=== PATIENT | female | born 1980 | race Two or more races ===

== ENCOUNTER 2017-01-05 09:41 | Emergency (ER) | payer OTHER ==
[~2017-01-05] VITALS: Wt 43.6 kg
[~2017-01-05 09:41] MED LIST: ACET325T33 PO
[2017-01-05] MEDS ORDERED: CIPR500T4 PO (10:28)
--- NOTE | 2017-01-05 13:54 | ERD ---
ER Documentation Chief Complaint Date/Time DATE: 01/05/17 TIME: 13:52 Chief Complaint abd pain and diarrhea for 1 wk. no recent travel. no vomiting HPI Patient is a 36-year-old female with no medical problems who presents with diarrhea. She said that she started on Sunday with diarrhea after eating Wes fruit. She has not called her primary doctor as of yet. She thought that maybe she had food poisoning. She has had no blood in the diarrhea but says that it is been mucousy. The patient has no vomiting and no fevers. The patient had abdominal pain diffusely. There was no recent travel. She tried loperamide for the diarrhea. Upon review of old medical records this is the patient's fourth visit to the ER since 2014. ROS All systems reviewed and are negative except as per history of present illness. Medications Home Meds Active Scripts Ciprofloxacin Hcl* (Ciprofloxacin Hcl*) 500 Mg Tablet, 500 MG PO BID for 3 Days , TAB Prov:XANDER LYNNE MD 01/05/17 Acetaminophen* (Tylenol*) 325 Mg Tablet, 2 TAB PO Q6 Y for PAIN AND OR ELEVATED TEMP, #20 TAB Prov:RUBEN HICKMAN PA-C 06/02/16 Allergies Allergies: Coded Allergies: No Known Allergy (Unverified , 10/09/15) PMhx/Soc History of Surgery: Yes (CS X1) Anesthesia Reaction: No Hx Neurological Disorder: No Hx Respiratory Disorders: No Hx Cardiac Disorders: No Hx Psychiatric Problems: No Hx Miscellaneous Medical Probl: Yes (HYPOTHYROIDISM) Hx Alcohol Use: No Hx Substance Use: No Hx Tobacco Use: No FmHx Family History: No diabetes Physical Exam Vitals Vital Signs Date Time Temp Pulse Resp B/P Pulse Ox O2 Delivery O2 Flow Rate FiO2 01/05/17 09:46 98.4 87 21 120/71 99 Physical Exam Const: No acute distress Head: Atraumatic Eyes: Normal Conjunctiva ENT: Normal External Ears, Nose and Mouth. Neck: Full range of motion..~ No meningismus. Resp: Clear to auscultation bilaterally Cardio: Regular rate and rhythm, no murmurs Abd: Soft, non tender, non distended. Normal bowel sounds Skin: No petechiae or rashes Back: No midline or flank tenderness Ext: No cyanosis, or edema Neur: Awake and alert Psych: Normal Mood and Affect Procedures/MDM Patient is a 36-year-old female presents with abdominal pain and diarrhea. On abdominal exam she has no pain and I am able to push deeply in all 4 quadrants without pain. She has no fevers number department is well-appearing and well- hydrated. She has tried loperamide. Therefore I will try a 3 day course of Cipro to see if this is a bacterial diarrhea. The patient can follow-up with a primary doctor within 24-48 hours for reevaluation. At this point I doubt appendicitis, cholecystitis, pink otitis, or bowel obstruction. I do not believe she requires further workup or admission to the hospital at this time. Departure Diagnosis: Primary Impression: Abdominal pain Abdominal location: generalized Qualified Code: R10.84 - Generalized abdominal pain Additional Impression: Diarrhea Diarrhea type: presumed infectious Qualified Code: A09 - Diarrhea of presumed infectious origin Condition: Fair Patient Instructions: Abdominal Pain, Treating Diarrhea Additional Instructions: Call your primary care doctor TOMORROW for an appointment during the next 1-2 days.See the doctor sooner or return here if your condition worsens before your appointment time. XANDER LYNNE MD Jan 05, 2017 13:54
== END 2017-01-05 10:35 | disposition home or self-care (01) ==
LOC: FTE 09:41
DX: R10.84 Generalized abdominal pain (principal); E03.9 Hypothyroidism, unspecified; A09 Infectious gastroenteritis and colitis, unspecified
CPT/HCPCS: 99283

== ENCOUNTER 2017-09-19 10:59 | Inpatient (IN) | payer OTHER ==
[~2017-09-19] VITALS: Ht 139.7 cm; Wt 54.1 kg
[~2017-09-19 10:59] MED LIST changes: +CIPR500T4 PO
[2017-09-19 11:14] VITALS: Ht 139.7 cm; Wt 54.1 kg
[2017-09-19] MEDS ORDERED: METHYLERGONOVINE 0.2 MG INJ IM PRN ×2 (11:30→18:00)
[2017-09-19] MEDS ORDERED: OXYTOCIN 30 UNITS/LR 500 ML IV SCH (11:30)
[2017-09-19] MEDS ORDERED: CARBOPROST 250 MCG INJ IM PRN ×2 (11:30→18:00)
[2017-09-19] MEDS ORDERED: OXYTOCIN 30 UNITS/LR 500 ML IV PRN ×2 (11:30→18:00)
[2017-09-19] MEDS ORDERED: MISOPROSTOL 200 MCG TAB PR PRN ×2 (11:30→18:00)
[2017-09-19] MEDS ORDERED: CEFAZOLIN 2 GM/50 ML (PMX) 50 ML IV SCH (11:30)
[2017-09-19 12:24] LABS: ABNORMAL IP MESSAGE 1; BASOPHILS % 0.2 % (0.0-2.0); EOSINOPHILS # 0.1 10^3/ul (0.0-0.5); EOSINOPHILS % 0.9 % (0.0-7.0); HEMATOCRIT 32.9 % (37.0-47.0); HEMOGLOBIN 11.1 g/dl (12.0-16.0); LYMPHOCYTES % 19.7 % (15.0-51.0); MEAN CORPUSCULAR HEMOGLOBIN 25.1 pg (29.0-33.0); MEAN CORPUSCULAR HGB CONC 33.7 g/dl (32.0-37.0); MEAN CORPUSCULAR VOLUME 74.4 fl (82.0-101.0); MEAN PLATELET VOLUME 13.1 fl (7.4-10.4); MONOCYTE # 0.7 10^3/ul (0.3-0.9); MONOCYTES % 6.9 % (0.0-11.0); NEUTROPHIL # 7.4 10^3/ul (1.6-7.5); NEUTROPHILS % 71.3 % (39.0-77.0); PLATELET COUNT 228 10^3/UL (140-415); RED BLOOD COUNT 4.42 10^6/ul (4.20-5.40); RED CELL DISTRIBUTION WIDTH 13.9 % (11.5-14.5); WHITE BLOOD COUNT 10.3 10^3/ul (4.8-10.8)
[2017-09-19 12:52] LABS: INR 0.93; PROTIME 12.5 Sec (12.2-14.2)
[2017-09-19 12:53] LABS: PARTIAL THROMBOPLASTIN TIME 27.1 Sec (25.0-35.0)
[2017-09-19] MEDS: LACTATED RINGER'S 1,000 ML IV SCH ×3 (13:35→19:26)
[2017-09-19] MEDS ORDERED: FENTAnyl 50 MCG/ML VIAL ONE (14:18)
[2017-09-19] MEDS ORDERED: morphine SULFATE/PF (10 MG/10 ML) INJ ONE (14:18)
[2017-09-19] MEDS ORDERED: PHENYLephrine (100 MCG/ML) 5ML SYG ONE ×2 (14:18→15:06)
[2017-09-19] MEDS ORDERED: DEXAMETHASONE 4 MG/ML 1 ML INJ ONE (14:35)
[2017-09-19] MEDS ORDERED: ONDANSETRON 4 MG INJ ONE (14:35)
[2017-09-19] MEDS ORDERED: OXYTOCIN 30 UNITS/LR 500 ML IV ONE (14:44)
[2017-09-19] MEDS ORDERED: EPHEDrine SULFATE 50 MG/5 ML SYG ONE (15:04)
--- NOTE | 2017-09-19 15:25 | HP ---
Date/Time of Note Date/Time of Note DATE: 09/19/17 TIME: 15:22 OB - History Hx of Present Free Text/Dictation Admitted for repeat at 37+ weeks per perinatology because of poor growth decrease amniotic fluid Last Menstrual Period: Dec 29, 2007 Estimated Due Date: Oct 04, 2017 : 3 Para: 1 Spontaneous : 1 Care: Good Care Ultrasounds: Normal mid trimester US Obstetrical Complications: Growth Restriction Medical Complications: Other (Previous section) Past Family/Social History * Past Medical, Surgical, Family and Obstetric Histories reviewed from chart. Blood Type: O+ Rubella: immune RPR/VDRL: Negative GBS Status: Negative HBsAG: Negative OB Admission Exam Physical Exam HEENT: WNL Heart: Rhythm Normal Lungs: Clear, Equal Abdomen: WNL Extremities: Normal Reflexes: Normal Cervical Dilatation: None Effacement: 0% Station: -3 Membranes: Intact Heart Rate: 140's Accelerations: Accelerations Present Decelerations: No Decelerations Varibility: Marked Contractions on Admission: None Last 72 hours Lab Results CBC & BMP 09/19/17 11:30 OB Assessment/Plan Reason for admission: section Other Assessment: 37+ weeks gestation growth restriction Reason amniotic fluid Previous section 1 Other plan: Repeat section PONCE LOVE MD Sep 19, 2017 15:25
--- NOTE | 2017-09-19 15:29 | OPPN ---
Date/Time of Note Date/Time of Note DATE: 09/19/17 TIME: 15:25 Operative Report Planned Procedure Free Text/Dictation Under satisfactory anaesthesia a Pfannenstiel incision was made two fingerbreadth above and parallel to the symphysis of pubis around the previous scar and previous scar was removed Incision was extended laterally to the border of the Recti muscles on either sides. Incision was carried down with sharp and blunt dissection until fascia was reached. Anterior Recti muscle fascia was incised in mid portion and incision extended laterally to the border of skin incision. Fascia was mobilized from muscle superiorly and Recti muscles were from midline using sharp and blunt dissection. Peritoneum was visualized; Avoiding bowel and bladder it was incised . Incision was extended superiorly and inferiorly. Bladder blade was placed. Posterior peritoneum covering the lower segment of the uterus and lower segment of the uterus were incised.Low transverse uterine incision was made on lower segment of the uterus. Incision extended laterally to the border of Round Lig. on either sides and baby was delivered from OT. position . Amniotic fluid appeared clear. Cord blood was obtained and cord had 3 vessels . Placenta was delivered spontaneously and appeared intact and complete. Intrauterine cavity was rubbed with a laparotomy sponge. Uterine incision was closed in 2 layers using running stitches of No1 Monocryl. Hemostasis appeared secure. Ovaries and Fallopian tubes were within normal limits. Announcing needle, lap sponge and instrument count to be correct abdomen was closed in layers as follows: Peritoneum and Recti muscles with running stitches of 20 Vicryl. Fascia with running stitch of No 1 PDS. Subcutaneous tissue with running stitches of 20 Chromic and skin was closed using del. Patient tolerated the procedure well and was transferred to [facility] in good condition. Procedure date Sep 19, 2017 Procedure(s) Asher section Performed by see signature line Sales Order Processor Dr. Maher Anesthesiologist: GERRI BUCKNER Pre-procedure diagnosis 37+ weeks gestation Previous section 1 Decreased amniotic fluid Poor growth Anesthesia Type: spinal Post-Procedure Post-procedure diagnosis Status post repeat Findings Live Baby in OT position Scant amniotic fluid Estimated Blood Loss: 500 - 600 mls Specimen(s) none Grafts/Implant(s) none Complication(s) none PONCE LOVE MD Sep 19, 2017 15:29
[2017-09-19] MEDS ORDERED: DIPHENHYDRAMINE 50 MG INJ IV PRN (16:00)
[2017-09-19] MEDS ORDERED: ZOLPIDEM 5 MG TAB PO PRN (16:00)
[2017-09-19] MEDS ORDERED: NALOXONE (0.4 MG/ML) INJ IV PRN (16:00)
[2017-09-19] MEDS ORDERED: ONDANSETRON 4 MG INJ IV PRN (16:00)
[2017-09-19] MEDS ORDERED: HYDROmorphONE 0.5 MG/0.5 ML SYG IV PRN ×2 (16:00)
[2017-09-19] MEDS ORDERED: LANOLIN 7 GM TUBE TOP PRN (18:00)
[2017-09-19] MEDS ORDERED: NA PHOSPHATE/BIPHOS 133 ML ENEMA PR PRN (18:00)
[2017-09-19 18:25] VITALS: BP 123/84; PULSE 92; RESP 18
[2017-09-19] MEDS: CLINDAMYCIN 300 MG CAP PO SCH (18:49)
[2017-09-19] MEDS: KETOROLAC 30 MG INJ IV PRN (18:50)
[2017-09-19 20:00] VITALS: BP 131/70; PULSE 88; RESP 20
[2017-09-19] MEDS: CEFAZOLIN 2 GM/50 ML (PMX) 50 ML IVPB SCH (21:46)
[2017-09-19] MEDS: SENNA/DOCUSATE NA (8.6MG/50MG) TAB PO SCH (21:47)
[2017-09-20] MEDS: CLINDAMYCIN 300 MG CAP PO SCH ×5 (00:12→23:55)
[2017-09-20 00:17] VITALS: BP 106/61; PULSE 100; RESP 20
[2017-09-20] MEDS: LACTATED RINGER'S 1,000 ML IV SCH ×3 (03:47→17:54)
[2017-09-20 04:00] VITALS: BP 99/59; PULSE 87; RESP 20
[2017-09-20] MEDS: KETOROLAC 30 MG INJ IV PRN ×2 (04:21→12:07)
[2017-09-20] MEDS: CEFAZOLIN 2 GM/50 ML (PMX) 50 ML IVPB SCH ×2 (06:00→14:26)
[2017-09-20 07:45] VITALS: BP 99/57; PULSE 90; RESP 18
[2017-09-20 09:46] LABS: BASOPHILS % 0.1 % (0.0-2.0); EOSINOPHILS # 0.1 10^3/ul (0.0-0.5); EOSINOPHILS % 0.5 % (0.0-7.0); HEMATOCRIT 28.8 % (37.0-47.0); HEMOGLOBIN 9.6 g/dl (12.0-16.0); LYMPHOCYTES # 2.9 10^3/ul (0.8-2.9); LYMPHOCYTES % 18.9 % (15.0-51.0); MEAN CORPUSCULAR HEMOGLOBIN 25.1 pg (29.0-33.0); MEAN CORPUSCULAR HGB CONC 33.3 g/dl (32.0-37.0); MEAN CORPUSCULAR VOLUME 75.2 fl (82.0-101.0); MEAN PLATELET VOLUME 12.5 fl (7.4-10.4); MONOCYTE # 1.1 10^3/ul (0.3-0.9); MONOCYTES % 7.1 % (0.0-11.0); NEUTROPHIL # 11.2 10^3/ul (1.6-7.5); NEUTROPHILS % 72.7 % (39.0-77.0); PLATELET COUNT 209 10^3/UL (140-415); RED BLOOD COUNT 3.83 10^6/ul (4.20-5.40); RED CELL DISTRIBUTION WIDTH 13.6 % (11.5-14.5); WHITE BLOOD COUNT 15.4 10^3/ul (4.8-10.8)
[2017-09-20] MEDS: SENNA/DOCUSATE NA (8.6MG/50MG) TAB PO SCH ×2 (09:55→21:00)
[2017-09-20] MEDS ORDERED: BISACODYL 10 MG SUPP PR ONE (10:00)
[2017-09-20 11:58] VITALS: BP 93/55; PULSE 86; RESP 20
[2017-09-20] MEDS: IBUPROFEN 800 MG TAB PO SCH ×2 (14:00→21:36)
--- NOTE | 2017-09-20 14:49 | PN ---
Date/Time of Note Date/Time of Note DATE: 09/20/17 TIME: 14:47 Assessment/Plan VTE Prophylaxis VTE Prophylaxis Intervention: ambulation Lines/Catheters IV Catheter Type (from Nrsg): Peripheral IV Assessment/Plan Assessment/Plan Status post postop day 1 Advance diet and ambulate Continue to monitor vital signs Repeat CBC next day Subjective 24 Hr Interval Summary No bowel movement Passing flatus Constitutional: BM, ambulates, flatus, improved, no complaints, urine output Pain Control: well controlled Exam/Review of Systems Vital Signs Vitals Vital Signs Date Time Temp Pulse Resp B/P Pulse Ox O2 Delivery O2 Flow Rate FiO2 09/20/17 11:58 98.0 86 20 93/55 Room Air 09/20/17 05:45 96 21 Intake and Output 09/19/17 09/19/17 09/20/17 14:59 22:59 06:59 Intake Total 2000 ml 435 ml 875 ml Output Total 1300 ml 200 ml Balance 2000 ml -865 ml 675 ml Exam Free Text/Dictation Abdomen is soft and not distended bowel sounds are present Incision is covered Constitutional: alert, oriented, well developed Psych: nl mood/affect, no complaints Head: atraumatic, normocephalic Eyes: EOMI, nl conjunctiva, nl lids, nl sclera ENMT: mucosa pink and moist, nl external ears & nose, nl lips & teeth, nl nasal mucosa & septum Neck: non-tender, supple Respiratory: clear to auscultation, normal air movement Cardiovascular: nl pulses, regular rate and rhythm Gastrointestinal: nl liver, spleen, non-tender, soft Drains None Musculoskeletal: nl extremities to inspection, nl gait and stance Extremities: normal pulses Neurological: FLIGHT DECK OFFICER II-XII intact, nl mental status, nl speech, nl strength Skin: nl turgor, rash or lesions Lymph: nl lymph nodes Results Result Diagram: 09/20/17 0904 PONCE LOVE MD Sep 20, 2017 14:49
[2017-09-20 15:48] VITALS: BP 125/57; PULSE 18; RESP 20
[2017-09-20] MEDS ORDERED: HYDROCODONE/APAP (5/325) TAB PO PRN (16:00)
[2017-09-20] MEDS: OXYCODONE/ACETAMINOPHEN (5/325) TAB PO PRN ×2 (16:24→23:56)
[2017-09-20 20:00] VITALS: BP 115/67; PULSE 98; RESP 18
[2017-09-21 03:50] VITALS: BP 97/68; PULSE 76; RESP 18
[2017-09-21] MEDS: IBUPROFEN 800 MG TAB PO SCH ×3 (05:31→22:27)
[2017-09-21] MEDS: CLINDAMYCIN 300 MG CAP PO SCH ×4 (05:31→23:50)
[2017-09-21 07:30] VITALS: BP 123/79; PULSE 86; RESP 19
[2017-09-21 08:41] LABS: BASOPHILS % 0.3 % (0.0-2.0); EOSINOPHILS # 0.2 10^3/ul (0.0-0.5); HEMATOCRIT 30.7 % (37.0-47.0); HEMOGLOBIN 10.2 g/dl (12.0-16.0); LYMPHOCYTES # 3.1 10^3/ul (0.8-2.9); LYMPHOCYTES % 20.9 % (15.0-51.0); MEAN CORPUSCULAR HEMOGLOBIN 24.9 pg (29.0-33.0); MEAN CORPUSCULAR HGB CONC 33.2 g/dl (32.0-37.0); MEAN CORPUSCULAR VOLUME 75.1 fl (82.0-101.0); MEAN PLATELET VOLUME 11.4 fl (7.4-10.4); MONOCYTES % 6.7 % (0.0-11.0); NEUTROPHIL # 10.6 10^3/ul (1.6-7.5); NEUTROPHILS % 70.5 % (39.0-77.0); PLATELET COUNT 244 10^3/UL (140-415); RED BLOOD COUNT 4.09 10^6/ul (4.20-5.40); RED CELL DISTRIBUTION WIDTH 13.8 % (11.5-14.5)
[2017-09-21] MEDS: SENNA/DOCUSATE NA (8.6MG/50MG) TAB PO SCH ×2 (09:00→20:46)
[2017-09-21] MEDS: OXYCODONE/ACETAMINOPHEN (5/325) TAB PO PRN ×2 (12:13→18:54)
--- NOTE | 2017-09-21 15:07 | DS ---
Date/Time of Note Date/Time of Note Home next day DATE: 09/21/17 TIME: 15:06 Obstetrical Discharge Record Final Diagnosis Final Diagnosis: Term delivered Other Final Diagnosis Status post Section Section: Repeat Complications Other (Cholestasis) Condition on Discharge Physical Assessment Last Vitals: Vital signs are stable Voiding: Yes Bowel Movement: Yes Breast: Soft, non-tender, Filling Fundus: Firm Abdomen and Incision: Abdomen is soft bowel sounds present Incision is without induration and or erythema and healing well Episiotomy: Not applicable Calf Tenderness: No Patient Condition: Good PONCE LOVE MD Sep 21, 2017 15:07
--- NOTE | 2017-09-21 15:08 | DS ---
Date/Time of Note Date/Time of Note DATE: 09/21/17 TIME: 15:07 Discharge Summary Admission/Discharge Info Admit Date/Time Sep 19, 2017 at 10:59 Discharge Date/Time September 22, 2017 Discharge Diagnosis Status post repeat Patient Condition: Good Procedures Repeat delivery Hx of Present Illness 37-year-old female has repeat section at 37+ weeks because of cholestasis Hospital Course Uncomplicated Home Meds Active Scripts Ciprofloxacin Hcl* (Ciprofloxacin Hcl*) 500 Mg Tablet, 500 MG PO BID for 3 Days , TAB Prov:XANDER LYNNE MD 01/05/17 Acetaminophen* (Tylenol*) 325 Mg Tablet, 2 TAB PO Q6 Y for PAIN AND OR ELEVATED TEMP, #20 TAB Prov:RUBEN HICKMAN PA-C 06/02/16 Follow-up Plan To 3 days in clinic for staple removal Primary Care Provider Not On Staff Doctor Time spent on discharge: > 30 minutes Pending Labs Laboratory Tests Test 09/21/17 08:28 White Blood Count 15.010^3/ul (4.8-10.8) Red Blood Count 4.0910^6/ul (4.20-5.40) Hemoglobin 10.2g/dl (12.0-16.0) Hematocrit 30.7% (37.0-47.0) Mean Corpuscular Volume 75.1fl (82.0-101.0) Mean Corpuscular Hemoglobin 24.9pg (29.0-33.0) Mean Corpuscular Hemoglobin Concent 33.2g/dl (32.0-37.0) Red Cell Distribution Width 13.8% (11.5-14.5) Platelet Count 03276^3/UL (140-415) Mean Platelet Volume 11.4fl (7.4-10.4) Neutrophils % 70.5% (39.0-77.0) Lymphocytes % 20.9% (15.0-51.0) Monocytes % 6.7% (0.0-11.0) Eosinophils % 1.0% (0.0-7.0) Basophils % 0.3% (0.0-2.0) Nucleated Red Blood Cells % 0.0/100WBC (0.0-0.0) Neutrophils # 10.610^3/ul (1.6-7.5) Lymphocytes # 3.110^3/ul (0.8-2.9) Monocytes # 1.010^3/ul (0.3-0.9) Eosinophils # 0.210^3/ul (0.0-0.5) Basophils # 0.010^3/ul (0.0-0.1) Nucleated Red Blood Cells # 0.010^3/ul (0.0-0.0) PONCE LOVE MD Sep 21, 2017 15:08
[2017-09-21] MEDS ORDERED: IBUP800T25 PO (15:09)
--- NOTE | 2017-09-21 15:09 | PD.PPDC ---
LIVESTOCK TRUCKER Discharge Instruction Provider Information Physician Information 37-year-old female had repeat Diagnosis Final Diagnosis: Status post repeat Condition Patient Condition: Good Diet Diet: Resume Regular Diet Activity/Restrictions Activity: February Shower Restrictions: No Exercising No Lifting Nothing in the Vagina Return to Work or School: Nov 26, 2017 Follow-up Follow-up with Physician: 2, 3, Day/Days (In clinic for staple removal) Return to clinic for INFORMATION ENGINEER Instructions: Fever greater than 101 Chills OB Instructions: Breast Tenderness Depression Comment: Pelvic rest no heart activity for 2 months Surgical Instructions: Incisional Drainage Incisional Redness PONCE LOVE MD Sep 21, 2017 15:09
[2017-09-21 16:00] VITALS: BP 121/86; RESP 19
[2017-09-21 19:45] VITALS: BP 117/75; PULSE 83; RESP 18
[2017-09-22 04:00] VITALS: BP 110/70; PULSE 66; RESP 18
[2017-09-22] MEDS: IBUPROFEN 800 MG TAB PO SCH ×2 (06:16→13:09)
[2017-09-22] MEDS: CLINDAMYCIN 300 MG CAP PO SCH ×2 (06:17→12:40)
[2017-09-22 08:00] VITALS: BP 130/76; PULSE 73; RESP 20
[2017-09-22] MEDS: SENNA/DOCUSATE NA (8.6MG/50MG) TAB PO SCH (09:00)
[2017-09-22] MEDS ORDERED: DIPHTH/TET/ACEL PERTUSS (ADULT) 0.5 ML VIAL IM* ONE (09:00)
[2017-09-22] MEDS ORDERED: MEASLES,MUMPS,RUBELLA VACCINE INJ SC* ONE (09:00)
[2017-09-22 09:08] LABS: BASOPHILS % 0.2 % (0.0-2.0); EOSINOPHILS # 0.2 10^3/ul (0.0-0.5); EOSINOPHILS % 1.4 % (0.0-7.0); HEMATOCRIT 29.7 % (37.0-47.0); HEMOGLOBIN 9.9 g/dl (12.0-16.0); LYMPHOCYTES # 2.3 10^3/ul (0.8-2.9); LYMPHOCYTES % 19.7 % (15.0-51.0); MEAN CORPUSCULAR HEMOGLOBIN 25.4 pg (29.0-33.0); MEAN CORPUSCULAR HGB CONC 33.3 g/dl (32.0-37.0); MEAN CORPUSCULAR VOLUME 76.2 fl (82.0-101.0); MEAN PLATELET VOLUME 11.8 fl (7.4-10.4); MONOCYTE # 0.7 10^3/ul (0.3-0.9); MONOCYTES % 5.5 % (0.0-11.0); NEUTROPHIL # 8.6 10^3/ul (1.6-7.5); NEUTROPHILS % 72.6 % (39.0-77.0); PLATELET COUNT 257 10^3/UL (140-415); RED CELL DISTRIBUTION WIDTH 14.1 % (11.5-14.5); WHITE BLOOD COUNT 11.9 10^3/ul (4.8-10.8)
== END 2017-09-22 14:30 | disposition home or self-care (01) | DRG 765 ==
LOC: L-D 10:59 → PP1 18:36
PROVIDERS: ADMIT Obstetrics & Gynecology; ATTEND Obstetrics & Gynecology
PROC: 10D00Z1 Extraction of Products of Conception, Low, Open Approach (ICD-10-PCS; principal; 2017-09-19 14:00)
DX: O34.211 Maternal care for low transverse scar from previous cesarean delivery (principal); O36.5930 Maternal care for other known or suspected poor fetal growth, third trimester, not applicable or unspecified; Z37.0 Single live birth; Z3A.37 37 weeks gestation of pregnancy
CPT/HCPCS: 85025; 85610; 85730; 86592; 86850; 86900; 86901; 87340; 90715; 94760; 99464; J0690; J1100; J1200; J1885; J2274; J2370; J2405; J2590; J3010; J7120

== ENCOUNTER 2017-10-03 14:09 | Emergency (ER) | payer OTHER ==
[~2017-10-03] VITALS: Wt 50.0 kg
[~2017-10-03 14:09] MED LIST changes: -CIPR500T4 PO; +IBUP800T25 PO
[2017-10-03] MEDS ORDERED: ACET500C5 PO (15:42)
--- NOTE | 2017-10-03 16:00 | ERD ---
ER Documentation Chief Complaint Chief Complaint 2 weeks ago, wants to have check HPI Patient is a 37-year-old female presents ED for concerns of wound recheck. Patient underwent 2 weeks ago. Patient states this morning when taking a shower she noticed some blood-tinged or discharge from her incision site. Patient also states incision site opened up slightly. Patient denies any fevers. Patient denies any nausea, vomiting or abdominal pain. Patient denies any urinary symptoms. Patient states she has a follow-up appointment with her doctor Dr. Max Koehler tomorrow morning. ROS All systems reviewed and are negative except as per history of present illness. Medications Home Meds Active Scripts Acetaminophen* (Tylophen*) 500 Mg Capsule, 1 CAP PO Q6H Y for PAIN AND OR ELEVATED TEMP, #20 CAP Prov:JASON KOEHLER PA-C 10/03/17 Ibuprofen* (Ibuprofen*) 800 Mg Tablet, 800 MG PO Q8, #30 TAB 0 Refills Prov:PONCE LOVE MD 09/21/17 Acetaminophen* (Tylenol*) 325 Mg Tablet, 2 TAB PO Q6 Y for PAIN AND OR ELEVATED TEMP, #20 TAB Prov:RUBEN HICKMAN PA-C 06/02/16 Allergies Allergies: Coded Allergies: No Known Allergy (Unverified , 07/06/17) PMhx/Soc History of Surgery: Yes (caesarian 09/19/2017) Anesthesia Reaction: No Hx Neurological Disorder: No Hx Respiratory Disorders: No Hx Cardiac Disorders: No Hx Psychiatric Problems: No Hx Miscellaneous Medical Probl: No Hx Alcohol Use: No Hx Substance Use: No Hx Tobacco Use: No Smoking Status: Never smoker Physical Exam Vitals Vital Signs Date Time Temp Pulse Resp B/P Pulse Ox O2 Delivery O2 Flow Rate FiO2 10/03/17 14:15 98.1 77 18 113/77 99 Physical Exam GENERAL: Well-developed, well-nourished female. Appears in no acute distress. HEAD: Normocephalic, atraumatic. EYES: Pupils are equally reactive bilaterally. EOMs grossly intact. No conjunctival erythema. ENT: Moist mucous membranes. No uvula deviation. No kissing tonsils. NECK: Supple. No meningismus. Normal range of motion of the neck. ABDOMEN: Healing post surgical scar noted. Less than 1/2 cm area of wound dehiscence noted. No purulent discharge is expressed from the site. No surrounding erythema noted around the incision site. No warmth or swelling noted. No fluctuance noted. Small amount of bleeding noted. Abdomen is soft, nontender, and nondistended. No rebound tenderness, no guarding. (-) McBurney' s point tenderness. No CVA tenderness. EXTREMITIES: Equal pulses bilaterally. No peripheral clubbing, cyanosis or edema. No unilateral leg swelling. NEUROLOGIC: Alert and oriented. Moving all four extremities without any difficulty. Normal speech. Steady gait. SKIN: Normal color. Warm and dry. No rashes or lesions. Procedures/MDM MEDICAL DECISION MAKING: This is a 37-year-old female who presents to the ED for concerns of a wound check of her incision. Patient had a 2 weeks ago. Patient states this morning she saw some bloody discharge from her incisional site and reports a small opening. Patient denied any fevers. Vital signs were reviewed. Overall the wound appears to be healing well without any signs of acute infection. There was a small opening which I did close with Steri- Strips. Patient was advised keep the 3 steri strips placed toay on until they fall off by themselves. No indication of suture repair indicated at this time. There was no surrounding erythema, warmth, swelling of fluctuance to suggest an abscess or deep space infection at this time. Patient was also afebrile. Postprocedural wound care was discussed with the patient. Patient does have follow-up appointment with her CHECK WRITER SALESPERSON tomorrow morning. Patient was advised to discuss her symptoms with her CHECK WRITER SALESPERSON. Patient was stable prior to discharge. Low suspicion for cellulitis, abscess, deep space infection. Low suspicion for complete wound dehiscence. Low suspicion for endometritis. Low suspicion for eclampsia. Patient's blood pressure is not elevated. PRESCRIPTIONS: Tylenol as needed for pain DISCHARGE: At this time, the patient is stable for discharge and outpatient management. Post-procedural wound care was discussed with the patient. I have instructed the patient to promptly return to the ER for any new or worsening symptoms including increasing pain, fever, warmth, redness or swelling. The patient and/ or family expressed understanding of and agreement with this plan. All questions were answered. Home care instructions were provided. Disclaimer: Inadvertent spelling and grammatical errors are likely due to EHR/ dictation software use and do not reflect on the overall quality of patient care. Also, please note that the electronic time recorded on this note does not necessarily reflect the actual time of the patient encounter. Departure Diagnosis: Primary Impression: Encounter for wound re-check Additional Impression: Status post Condition: Stable Patient Instructions: Post Op Wound Check, Pain Referrals: PONCE LOVE MD Additional Instructions: Follow up with your OBGYN as scheduled tomorrow. Call your primary care doctor TOMORROW for an appointment during the next 1-2 days.See the doctor sooner or return here if your condition worsens before your appointment time. JASON KOEHLER PA-C Oct 03, 2017 16:00
== END 2017-10-03 15:51 | disposition home or self-care (01) ==
LOC: FTE 14:09
DX: O90.0 Disruption of cesarean delivery wound (principal)
CPT/HCPCS: 99283